=== PATIENT | male | born 1950 | race Caucasian/White ===

== ENCOUNTER → 2017-03-18 | Outpatient (CLI) | payer MEDICARE ==
--- NOTE | 2017-03-18 07:07 | MR ---
EXAMINATION TYPE: MR knee LT wo con DATE OF EXAM: 03/18/2017 COMPARISON: NONE HISTORY: pain in left lower leg, knee pain TECHNIQUE: Multiplanar, multisequence images of the knee is performed without IV contrast. FINDINGS: MEDIAL MENISCUS: Horizontal increased signal anterior horn is seen. There is oblique linear signal ex tends to inferior articular surface. LATERAL MENISCUS: Posterior horn shows triangular shaped increased signal that is more complex centra lly but does not extend to articular surface. Anterior horn shows triangular shaped increased signal with fraying and its extension to superior articular surface sagittal image 10. There is large multi septated para meniscal cyst seen best coronal image 23 measuring 2.4 cm craniocaudal dimension by 1.2 cm transversely by 2.1 cm AP diameter. CRUCIATE LIGAMENTS: The anterior and posterior cruciate ligaments are intact and unremarkable. COLLATERAL LIGAMENTS: The medial collateral ligament and lateral collateral ligament complex are inta ct. Large septated parameniscal cyst causes marked lateral bulging of lateral cruciate ligament compl ex. EXTENSOR MECHANISM: Visualized quadriceps and patellar tendons are intact. EFFUSION: No significant suprapatellar joint effusion. POPLITEAL CYST: There is small thinly septated popliteal/prieto cyst. TRICOMPARTMENT SPACES: Mild to moderate tricompartment joint space loss and spurring is present. CARTILAGE: Tricompartment articular cartilage is fairly well-maintained. BONE MARROW SIGNAL: No focal abnormal marrow signal is appreciated. OTHER: No additional significant abnormality is appreciated. IMPRESSION: 1. Full-thickness tears anterior horn of lateral meniscus and probable posterior horn of lateral meni scus with large adjacent para meniscal cyst causing mass effect on the lateral collateral ligament co mplex along the deep surface. 2. Full-thickness oblique tear posterior horn of medial meniscus. 3. 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 4. Small popliteal cyst.
== END ==
LOC: RADMRIMAIN 05:55
PROVIDERS: ATTEND Orthopaedic Surgery
DX: M25.562 Pain in left knee (principal); S83.282A Other tear of lateral meniscus, current injury, left knee, initial encounter; M71.22 Synovial cyst of popliteal space [Baker], left knee

== ENCOUNTER → 2018-02-03 | Outpatient (CLI) | payer MEDICARE ==
[2018-02-03 10:06] LABS: HCT 49.6 % (39.0-53.0); HGB 16.5 gm/dL (13.0-17.5); MCH 32.7 pg (25.0-35.0); MCHC 33.3 g/dL (31.0-37.0); MCV 98.3 fL (80.0-100.0); Mean Platelet Volume 6.7; Platelet Count 178 k/uL (150-450); RBC 5.04 m/uL (4.30-5.90); RDW 12.9 % (11.5-15.5); WBC 3.1 k/uL (3.8-10.6)
[2018-02-03 16:57] LABS: Anion Gap 6.3 mmol/L (4.00-12.00); Carbon Dioxide 28.7 mmol/L (21.6-31.8); LDL Cholesterol,Calculated 96.4 mg/dL (0.0-131.0); Potassium 4.5 mmol/L (3.5-5.5); VLDL Calculation 25.6 mg/dL (5.00-40.00)
== END | disposition home or self-care (01) ==
LOC: LABWHC1 09:20
PROVIDERS: ATTEND Internal Medicine Cardiovascular Disease
DX: E78.2 Mixed hyperlipidemia (principal)
CPT/HCPCS: 36415; 80051; 80061; 82565; 84450; 84460; 84520; 85027

== ENCOUNTER → 2018-08-30 | Outpatient (CLI) | payer MEDICARE ==
[2018-08-30 19:04] LABS: LDL Cholesterol,Calculated 85.8 mg/dL (0.0-131.0); VLDL Calculation 24.2 mg/dL (5.00-40.00)
== END | disposition home or self-care (01) ==
LOC: LABWHC1 11:22
PROVIDERS: ATTEND Internal Medicine Cardiovascular Disease
DX: E78.2 Mixed hyperlipidemia (principal)
CPT/HCPCS: 36415; 80061; 84450; 84460

== ENCOUNTER 2019-03-22 10:37 | Day surgery (SDC) | payer MEDICARE ==
[2019-03-21 13:51] VITALS: BMI 29.8
[2019-03-22 10:59] VITALS: RESP 16; TEMP 98.1
[2019-03-22] MEDS ORDERED: LACTATED RINGERS 1,000 ML IV ONE (11:09)
[2019-03-22] MEDS ORDERED: LIDOCAINE 1% 20 ML VIAL (10MG/ML) FOR IV START INTRADERMA ONE (11:09)
[2019-03-22] MEDS ORDERED: PROPOFOL 10 MG/ML 20 ML VIAL IV ONE (11:38)
[2019-03-22] MEDS ORDERED: LIDOCAINE 1% INJ 10MG/ML (20 ML MDV) ONE (11:38)
--- NOTE | 2019-03-22 12:16 | P.PCN ---
Date of Procedure: 03/22/19 Description of Procedure: BRIEF HISTORY: Patient is a 68-year-old pleasant male scheduled for an elective colonoscopy as a part of evaluation given history of colon polyps. He denies any change in bowel habits, blood per rectum or abdominal pain. No family history of colon cancer reported. Last colonoscopy 5 years ago per his recollection. PROCEDURE PERFORMED: Colonoscopy. PREOPERATIVE DIAGNOSIS: History of colon polyps, last colonoscopy 5 years ago. ESTIMATED BLOOD LOSS: Minimal. IV sedation per Anesthesia. PROCEDURE: After informed consent was obtained, the patient, was brought into the endoscopy unit. IV sedation was administered by Anesthesia under continuous monitoring. Digital rectal examination was normal. Initially the Olympus CF-190 flexible video colonoscope was then inserted in the rectum, gradually advanced into the cecum without any difficulty. Careful examination was performed as the scope was gradually being withdrawn. Ileocecal valve and the appendiceal orifice were visualized and appeared normal. Prep was good with some liquid and solid stool noted scattered throughout the colon. Mucosa of the cecum, ascending colon, transverse colon, descending colon, sigmoid colon, and rectum appeared normal. Retroflexion was performed in the rectum and no lesions were seen, low-grade internal hemorrhoids noted. The patient tolerated the procedure well. IMPRESSION: Normal-appearing colon from rectum to cecum. RECOMMENDATIONS: Findings of this examination were discussed with the patient and his . Okay to resume diet. Okay to resume medications. Would recommend repeat colonoscopy in 5 years for a personal history of colon polyps, or sooner if any signs or symptoms which warrant further evaluation.
[2019-03-22 12:31] VITALS: BP 138/78; PULSE 53
== END 2019-03-22 12:53 | disposition home or self-care (01) ==
LOC: ORWHC2ENDO 10:37
PROVIDERS: ATTEND Internal Medicine
DX: Z12.11 Encounter for screening for malignant neoplasm of colon (principal); K64.8 Other hemorrhoids; Z86.010 Personal history of colon polyps; I25.10 Atherosclerotic heart disease of native coronary artery without angina pectoris; I10 Essential (primary) hypertension; E78.5 Hyperlipidemia, unspecified; K21.9 Gastro-esophageal reflux disease without esophagitis; Z87.891 Personal history of nicotine dependence; Z79.899 Other long term (current) drug therapy; Z79.82 Long term (current) use of aspirin; Z95.5 Presence of coronary angioplasty implant and graft; Z98.890 Other specified postprocedural states; Z80.42 Family history of malignant neoplasm of prostate
CPT/HCPCS: J2001; J2704; G0105; 45378

== ENCOUNTER 2024-06-22 07:44 | Day surgery (SDC) | payer MEDICARE ==
[2024-06-20 16:31] VITALS: BMI 31.4
[~2024-06-22 07:44] MED LIST: LIDOCAINE 1% (10MG/ML) FOR IV START INTRADERMA PRN
[2024-06-22 08:07] VITALS: TEMP 97.2
[2024-06-22] MEDS: LACTATED RINGERS 1,000 ML IV SCH (08:19)
[2024-06-22] MEDS: IV FLUID CONTINUATION 1,000 ML IV ONE (08:20)
[2024-06-22] MEDS ORDERED: PROPOFOL 10 MG/ML 20 ML VIAL IV ONE (08:50)
--- NOTE | 2024-06-22 09:09 | P.PCN ---
Date of Procedure: 06/22/24 Procedure(s) Performed: BRIEF HISTORY: Patient is a 73-year-old pleasant white male scheduled for an elective colonoscopy as a part of screening for history of colon polyps. His last colonoscopy was 5 years ago PROCEDURE PERFORMED: Colonoscopy. PREOPERATIVE DIAGNOSIS: Screening for history of colon polyps. IV sedation per Anesthesia. PROCEDURE: After informed consent was obtained, the patient, was brought into the endoscopy unit. IV sedation was administered by Anesthesia under continuous monitoring. Digital rectal examination was normal. Initially the Olympus CF-160 flexible video colonoscope was then inserted in the rectum, gradually advanced into the cecum without any difficulty. Careful examination was performed as the scope was gradually being withdrawn. Ileocecal valve and the appendiceal orifice were visualized and appeared normal. Prep was excellent. Mucosa of the cecum, ascending colon, transverse colon, descending colon, sigmoid colon, and rectum appeared normal. Retroflexion was performed in the rectum and small internal hemorrhoid were seen. The patient tolerated the procedure well. IMPRESSION: Normal-appearing colon from rectum to cecum with no evidence of colorectal neoplasia. Small internal hemorrhoids RECOMMENDATIONS: Findings of this examination were discussed with the patient as well as his family. He was advised to have repeat screening colonoscopy in 10 years.
[2024-06-22 09:29] VITALS: BP 110/65; PULSE 56; RESP 18
== END 2024-06-22 10:00 | disposition home or self-care (01) ==
LOC: ORWHC2ENDO 07:44
PROVIDERS: ATTEND Internal Medicine Gastroenterology
DX: Z12.11 Encounter for screening for malignant neoplasm of colon (principal); Z86.0100 Personal history of colon polyps, unspecified; K64.8 Other hemorrhoids
CPT/HCPCS: 45378; J2704